=== PATIENT | female | born 1975 | race Caucasian/White ===

== ENCOUNTER 2016-10-09 12:51 | Emergency (ER) | payer MEDICAID ==
[~2016-10-09] VITALS: Ht 157.5 cm; Wt 99.5 kg
[~2016-10-09 12:51] MED LIST: FAMO-96 PO; HYDR-3498 PO; HYDR-906 PO; OMEP20CA9 PO; ONDA4TAB35 PO; PRED-253 PO
[2016-10-09 12:54] VITALS: Ht 157.5 cm; Wt 99.5 kg
[2016-10-09] MEDS ORDERED: morphine 4 MG/ML VIAL IV STA (13:34)
[2016-10-09] MEDS ORDERED: ONDANSETRON 4 MG INJ IV STA (13:34)
[2016-10-09] MEDS ORDERED: SOD CHLORIDE 0.9% 1,000 ML IV STA (13:34)
[2016-10-09] MEDS ORDERED: FAMOTIDINE 20 MG INJ IV STA (13:34)
[2016-10-09 14:14] LABS: ADD SCAN DIFF NO
[2016-10-09 14:17] LABS: ABNORMAL IP MESSAGE 1; BASOPHILS % 0.3 % (0.0-2.0); EOSINOPHILS # 0.2 10^3/ul (0.0-0.5); EOSINOPHILS % 5.2 % (0.0-7.0); HEMATOCRIT 37.9 % (37.0-47.0); HEMOGLOBIN 12.1 g/dl (12.0-16.0); LYMPHOCYTES # 0.4 10^3/ul (0.8-2.9); LYMPHOCYTES % 13.5 % (15.0-51.0); MEAN CORPUSCULAR HEMOGLOBIN 27.5 pg (29.0-33.0); MEAN CORPUSCULAR HGB CONC 31.9 g/dl (32.0-37.0); MEAN CORPUSCULAR VOLUME 86.1 fl (82.0-101.0); MEAN PLATELET VOLUME 11.3 fl (7.4-10.4); MONOCYTE # 0.2 10^3/ul (0.3-0.9); MONOCYTES % 7.1 % (0.0-11.0); NEUTROPHIL # 2.3 10^3/ul (1.6-7.5); NEUTROPHILS % 73.6 % (39.0-77.0); RED CELL DISTRIBUTION WIDTH 15.4 % (11.5-14.5); WHITE BLOOD COUNT 3.1 10^3/ul (4.8-10.8)
[2016-10-09 14:19] LABS: PLATELET COUNT 137 10^3/UL (140-415)
[2016-10-09 14:32] LABS: ALBUMIN 3.3 g/dl (3.3-4.9); ALBUMIN/GLOBULIN RATIO 0.89; BILIRUBIN,INDIRECT 0.4 mg/dl (0-1.1); BILIRUBIN,TOTAL 0.4 mg/dl (0.2-1.3); CALCIUM 8.5 mg/dl (8.4-10.2); CREATININE 0.55 mg/dl (0.44-1.00); POTASSIUM 3.4 mmol/L (3.5-5.1)
--- NOTE | 2016-10-09 14:38 | RADRPT ---
PROCEDURE: XR Chest. CLINICAL INDICATION: Shortness of breath. TECHNIQUE: Single frontal chest x-ray. COMPARISON: 11/27/2015 FINDINGS: The lungs are clear of acute infiltrates, edema, effusions, or masses. There are low lung volumes.. The cardiomediastinal silhouette is unremarkable. The osseous structures are intact. IMPRESSION: No acute cardiopulmonary disease. RPTAT: EE .Lefty Caldwell MD, MD Date Time Electronically viewed and signed by .Lefty Caldwell MD, on 10/09/2016 14:37 .L/
[2016-10-09 14:42] LABS: ADD UMIC YES; UR ASCORBIC ACID NEGATIVE (NEGATIVE); UR BILIRUBIN (Dip) NEGATIVE (NEGATIVE); UR BLOOD (Dip) 2+ mg/dL (NEGATIVE); UR CLARITY SLIGHTLY CLOUDY (CLEAR); UR COLOR YELLOW (YELLOW); UR GLUCOSE (Dip) NEGATIVE (NEGATIVE); UR KETONES (Dip) NEGATIVE (NEGATIVE); UR LEUKOCYTE ESTERASE (Dip) 2+ Leu/ul (NEGATIVE); UR NITRITE (Dip) NEGATIVE (NEGATIVE); UR RBC 5 /HPF (0-5); UR SPECIFIC GRAVITY (Dip) 1.013 (1.003-1.030); UR SQUAMOUS EPITHELIAL CELL FEW /HPF (FEW); UR TOTAL PROTEIN (Dip) 1+ mg/dl (NEGATIVE); UR UROBILINOGEN (Dip) NEGATIVE (NEGATIVE)
--- NOTE | 2016-10-09 14:59 | ERD ---
ER Documentation Chief Complaint Date/Time DATE: 10/09/16 TIME: 14:59 Chief Complaint VOMITING/DIARRHEA , BODY ACHE X 1 DAY HPI This is a 41-year-old female who presents to the emergency department today complaining of chest pain, vomiting, diarrhea, dizziness and body aches that started this morning states she has a history of lupus and gastritis. States she has had her gallbladder removed. She has not taken any medication for the pain besides her prednisone that she usually takes. ROS All systems reviewed and are negative except as per history of present illness. Medications Home Meds Active Scripts Acetaminophen* (Tylophen*) 500 Mg Capsule, 1 CAP PO Q6H Y for PAIN AND OR ELEVATED TEMP, #30 CAP Prov:ANGY TUCKER PA-C 10/09/16 Hydrocodone/Acetaminophen ([place] 5-325 Tablet) 1 Each Tablet, 1 TAB PO Q6H Y for PAIN, #12 TAB Prov:ANGY TUCKER PA-C 10/09/16 Cephalexin* (Keflex*) 500 Mg Capsule, 500 MG PO QID for 7 Days, CAP Prov:ANGY TUCKER PA-C 10/09/16 Famotidine* (Pepcid*) 20 Mg Tablet, 20 MG PO BID for 14 Days, TAB Prov:ANGY TUCKER PA-C 10/09/16 Dicyclomine Hcl* (Bentyl*) 10 Mg Capsule, 10 MG PO QID, #30 CAP Prov:ANGY TUCKER PA-C 10/09/16 Ondansetron Hcl* (Zofran*) 4 Mg Tablet, 4 MG PO Q6H for NAUSEA AND/OR VOMITING, #30 TAB Prov:ANGY TUCKER PA-C 10/09/16 Famotidine* (Pepcid*) 20 Mg Tablet, 20 MG PO BID for 4 Days, #30 TAB Prov:ASHLEY MCNEIL PA-C 11/27/15 Hydrocodone/Acetaminophen ([place] 5-325 Tablet) 1 Each Tablet, 1 TAB PO Q6H Y for PAIN, #7 TAB Prov:ASHLEY MCNEIL PA-C 11/27/15 Ondansetron Hcl* (Zofran* ODT) 4 mg -ODT Tab.disper, 4 MG PO Q8 Y for NAUSEA AND /OR VOMITING, #30 TAB Prov:DEMETRIUS SUBRAMANIAN JOSHUA RsoannaGagan HOUSEPERSON 02/01/15 Hydrocodone Bit-Acetaminophen* ([place]*) 5-325 Mg Tab, 1 TAB PO Q6 Y for PAIN, # 20 TAB Prov:DEMETRIUS SUBRAMANIANGagan HOUSEPERSON 02/01/15 Reported Medications Omeprazole* (Prilosec*) 20 Mg Capsule.dr, 20 MG PO DAILY 05/26/11 Prednisone (Prednisone) 5 Mg Tablet, 5 MG PO DAILY 05/26/10 Allergies Allergies: Coded Allergies: No Known Drug Allergy (Verified Allergy, Mild, 05/26/10) Unknown: Unable to obtain (Verified , 05/26/10) PMhx/Soc History of Surgery: Yes () Anesthesia Reaction: No Hx Neurological Disorder: No Hx Respiratory Disorders: No Hx Cardiac Disorders: Yes (HTN) Hx Psychiatric Problems: No Hx Miscellaneous Medical Probl: Yes (LUPUS, HIGH CHOLESTEROL, GASTRITIS) Hx Alcohol Use: No Hx Substance Use: No Hx Tobacco Use: No Physical Exam Vitals Vital Signs Date Time Temp Pulse Resp B/P Pulse Ox O2 Delivery O2 Flow Rate FiO2 10/09/16 12:54 98.7 98 18 108/53 98 Physical Exam Const: Obese, mild distress Head: Atraumatic Eyes: Normal Conjunctiva. PERRLA. EOM intact ENT: Normal External Ears, Nose and Mouth. Neck: Full range of motion..~ No meningismus. Resp: Clear to auscultation bilaterally. No absent breath sounds. No wheezing Cardio: Regular rate and rhythm, no murmurs Abd: Soft, epigastric tenderness and mild right upper quadrant tenderness non distended. Normal bowel sounds. No lower abdominal pain Skin: No petechiae or rashes Back: No midline or flank tenderness Ext: No cyanosis, or edema Neur: Awake and alert Psych: Normal Mood and Affect Result Diagram: 10/09/16 1330 10/09/16 1330 Results 24 hrs Laboratory Tests Test 10/09/16 13:30 White Blood Count 3.110^3/ul Red Blood Count 4.4010^6/ul Hemoglobin 12.1g/dl Hematocrit 37.9% Mean Corpuscular Volume 86.1fl Mean Corpuscular Hemoglobin 27.5pg Mean Corpuscular Hemoglobin Concent 31.9g/dl Red Cell Distribution Width 15.4% Platelet Count 67851^3/UL Mean Platelet Volume 11.3fl Neutrophils % 73.6% Lymphocytes % 13.5% Monocytes % 7.1% Eosinophils % 5.2% Basophils % 0.3% Nucleated Red Blood Cells % 0.0/100WBC Neutrophils # 2.310^3/ul Lymphocytes # 0.410^3/ul Monocytes # 0.210^3/ul Eosinophils # 0.210^3/ul Basophils # 0.010^3/ul Nucleated Red Blood Cells # 0.010^3/ul Urine Color YELLOW Urine Clarity SLIGHTLY CLOUDY Urine pH 6.0 Urine Specific [place] 1.013 Urine Ketones NEGATIVEmg/dL Urine Nitrite NEGATIVEmg/dL Urine Bilirubin NEGATIVEmg/dL Urine Urobilinogen NEGATIVEmg/dL Urine Leukocyte Esterase 2+David/ul Urine Microscopic RBC 5/HPF Urine Microscopic WBC 17/HPF Urine Squamous Epithelial Cells FEW/HPF Urine Hemoglobin 2+mg/dL Urine Glucose NEGATIVEmg/dL Urine Total Protein 1+mg/dl Sodium Level 142mmol/L Potassium Level 3.4mmol/L Chloride Level 107mmol/L Carbon Dioxide Level 19mmol/L Anion Gap 19 Blood Urea Nitrogen 13mg/dl Creatinine 0.55mg/dl Glucose Level 81mg/dl Calcium Level 8.5mg/dl Total Bilirubin 0.4mg/dl Direct Bilirubin 0.00mg/dl Indirect Bilirubin 0.4mg/dl Aspartate Amino Transf (AST/SGOT) 33IU/L Alanine Aminotransferase (ALT/SGPT) 69IU/L Alkaline Phosphatase 212IU/L Total Protein 7.0g/dl Albumin 3.3g/dl Globulin 3.70g/dl Albumin/Globulin Ratio 0.89 Lipase 110U/L Current Medications Medications (Trade) Dose Ordered Sig/Aaron Route PRN Reason Start Time Stop Time Status Last Admin Dose Admin Sodium Chloride (NS) 1,000 ml @ 1,000 mls/hr Q1H STAT IV 10/09/16 13:34 10/09/16 14:33 DC 10/09/16 14:30 Morphine Sulfate (morphine) 4 mg ONCE STAT IV 10/09/16 13:34 10/09/16 13:38 DC 10/09/16 14:53 Ondansetron HCl (Zofran Inj) 4 mg ONCE STAT IV 10/09/16 13:34 10/09/16 13:38 DC 10/09/16 14:53 Famotidine (Pepcid Iv) 20 mg ONCE STAT IV 10/09/16 13:34 10/09/16 13:38 DC 10/09/16 14:53 DIAGNOSTIC IMAGING REPORT Patient: KRIS VIGIL : 1975 Age: 41 Sex: F MR #: [id number] DOS: 10/09/16 0000 Ordering MD: ANGY TUCKER PA-C Location: [facility] Room/Bed: PROCEDURE: XR Chest. CLINICAL INDICATION: Shortness of breath. TECHNIQUE: Single frontal chest x-ray. COMPARISON: 11/27/2015 FINDINGS: The lungs are clear of acute infiltrates, edema, effusions, or masses. There are low lung volumes.. The cardiomediastinal silhouette is unremarkable. The osseous structures are intact. IMPRESSION: No acute cardiopulmonary disease. RPTAT: EE .Lefty Caldwell MD, MD Date Time Electronically viewed and signed by .Lefty Caldwell MD, on 10/09/2016 14:37 .L/ CC: ANGY TUCKER PA-C Procedures/[facility] This is a 41-year-old female who presents to the emergency department today with multiple complaints. Patient has a history of lupus and gastritis. Given patient's medical history and complaints and physical exam I did obtain laboratory workup as well as a chest x-ray and EKG Laboratory workup shows a mildly decreased white blood cell count. She is not anemic. Her platelets are decreased. Potassium is very mildly decreased otherwise electrolytes are within normal limits glucose is within normal limits. Liver enzymes are within normal limits Urine shows 2+ leukocyte esterase and negative nitrites and elevated white blood cells. EKG read and interpreted by Dr. Barbosa rate [address] elevation. No QT prolongation. Normal sinus rhythm. Low suspicion for acute NV, PE, pericarditis Chest x-ray shows no acute cardiopulmonary disease. Low suspicion for pneumonia , PE, abscess, pleural effusion, pneumothorax. Patient is afebrile. She is not tachycardic. Her oxygen saturations 98%. Patient was given morphine, Zofran and IV fluids here in the emergency department. Symptoms improved Patient symptoms at this time is consistent with abdominal pain, vomiting and diarrhea likely viral versus gastritis however may be related to urinary tract infection. Patient will be given a prescription for [place], Tylenol Keflex, Zofran, Bentyl, Pepcid At this time the patient is stable for discharge and outpatient management. Patient should follow up with their PCP in the next 1-2 days. They may return to the emergency department sooner for any persistent or worsening of symptoms. Patient understood and agreed with the plan. Discussed the patient with Dr. Barbosa and he is agreed with plan Departure Diagnosis: Primary Impression: Multiple complaints Condition: ANGY Cleveland PA-C Oct 09, 2016 14:59
[2016-10-09] MEDS ORDERED: DICY10CA60 PO (15:20)
[2016-10-09] MEDS ORDERED: ONDA4TAB8 PO (15:20)
[2016-10-09] MEDS ORDERED: CEPH-443 PO (15:21)
[2016-10-09] MEDS ORDERED: FAMO-96 PO (15:21)
[2016-10-09] MEDS ORDERED: HYDR-906 PO (15:22)
[2016-10-09] MEDS ORDERED: ACET500C5 PO (15:23)
== END 2016-10-09 16:43 | disposition home or self-care (01) ==
LOC: FTE 12:51
DX: R11.10 Vomiting, unspecified (principal); I10 Essential (primary) hypertension; R19.7 Diarrhea, unspecified; R10.13 Epigastric pain; R10.11 Right upper quadrant pain; R42 Dizziness and giddiness; R07.9 Chest pain, unspecified
CPT/HCPCS: 36415; 71010; 80053; 81001; 83690; 85025; 93005; 96361; 96374; 96375; J2270; J2405; J7030; Z7502; Z7610

== ENCOUNTER 2017-02-17 19:33 | Emergency (ER) | payer MEDICAID ==
[~2017-02-17] VITALS: Ht 154.9 cm; Wt 103.1 kg
[~2017-02-17 19:33] MED LIST changes: +ACET500C5 PO; +CEPH-443 PO; +DICY10CA60 PO; +ONDA4TAB8 PO
[2017-02-17 19:54] VITALS: Ht 154.9 cm; Wt 103.1 kg
[2017-02-17] MEDS ORDERED: GUAI473L22 PO (21:03)
[2017-02-17] MEDS ORDERED: DICY10CA60 PO (21:03)
[2017-02-17] MEDS ORDERED: CETI10CA PO (21:03)
[2017-02-17] MEDS ORDERED: ALBU8.5H3 INH (21:03)
[2017-02-17] MEDS ORDERED: PRED5TAB PO (21:03)
[2017-02-17] MEDS ORDERED: IBUP-1542 PO (21:03)
[2017-02-17] MEDS ORDERED: TRAM50TA2 PO (21:03)
[2017-02-17] MEDS ORDERED: ONDA4TAB14 PO (21:03)
--- NOTE | 2017-02-17 21:39 | ERD ---
ER Documentation Chief Complaint Chief Complaint body ache, headache, rash on L arm, pain on stomach x 1 week HPI 41-year-old female presents to emergency department for multiple complaints. Patient is complaining of generalized body aches, headache, epigastric pain and vomiting and diarrhea cough runny nose nasal congestion sore throat bilateral ear pain that started 1 week ago. Patient's son is sick with the same symptoms. Patient describes pain in affected areas as throbbing pain, 6/10 scale, accompanying the other symptoms. Patient does not have any fever or chills. Patient has not any blood in stool or black stool. Patient does not have any shortness of breath or wheezing. Patient has history of lupus, has chronic pain, her pain makes the symptoms worse. Patient denies any other symptoms. ROS All systems reviewed and are negative except as per history of present illness. Medications Home Meds Active Scripts Prednisone* (Prednisone*) 5 Mg Tab, 5 MG PO DAILY, #5 TAB Prov:DEMETRIUS SUBRAMANIAN NP 02/17/17 Ondansetron (Ondansetron Odt) 4 Mg Tab.rapdis, 4 MG PO Q6H Y for NAUSEA AND/OR VOMITING, #20 TAB Prov:DEMETRIUS SUBRAMANIAN NP 02/17/17 Dicyclomine Hcl* (Bentyl*) 10 Mg Capsule, 10 MG PO QID, #20 CAP Prov:DEMETRIUS SUBRAMANIAN NP 02/17/17 Albuterol Sulfate* (Proair HFA*) 8.5 Gm Hfa.aer.ad, 2 PUFF INH Q4H Y for WHEEZING AND SOB, #1 INHALER Prov:DEMETRIUS SUBRAMANIAN NP 02/17/17 Cetirizine Hcl* (Zyrtec*) 10 Mg Capsule, 10 MG PO DAILY, #30 TAB.CHEW Prov:DEMETRIUS SUBRAMANIAN NP 02/17/17 Guaifenesin-Codeine Phosphate* (Guaifenesin* AC Cough Syrup) 473 Ml Liquid, 10 ML PO Q4H Y for COUGH, #120 ML Prov:DEMETRIUS SUBRAMANIAN NP 02/17/17 Tramadol HCl (Tramadol HCl) 50 Mg Tablet, 50 MG PO Q6 for SEVERE PAIN LEVEL 7-10 , #20 TAB Prov:DEMETRIUS SUBRAMANIAN NP 02/17/17 Ibuprofen* (Motrin*) 600 Mg Tab, 600 MG PO Q6H Y for PAIN AND OR ELEVATED TEMP, #30 TAB Prov:DEMETRIUS SUBRAMANIAN NP 02/17/17 Acetaminophen* (Tylophen*) 500 Mg Capsule, 1 CAP PO Q6H Y for PAIN AND OR ELEVATED TEMP, #30 CAP Prov:ANGY TUCKER-C 10/09/16 Hydrocodone/Acetaminophen ([place] 5-325 Tablet) 1 Each Tablet, 1 TAB PO Q6H Y for PAIN, #12 TAB Prov:ANGY TUCKER-C 10/09/16 Cephalexin* (Keflex*) 500 Mg Capsule, 500 MG PO QID for 7 Days, CAP Prov:ANGY TUCKER-C 10/09/16 Famotidine* (Pepcid*) 20 Mg Tablet, 20 MG PO BID for 14 Days, TAB Prov:ANGY TUCKER-C 10/09/16 Dicyclomine Hcl* (Bentyl*) 10 Mg Capsule, 10 MG PO QID, #30 CAP Prov:ANGY TUCKER-C 10/09/16 Ondansetron Hcl* (Zofran*) 4 Mg Tablet, 4 MG PO Q6H for NAUSEA AND/OR VOMITING, #30 TAB Prov:ANGY TUCKER-C 10/09/16 Famotidine* (Pepcid*) 20 Mg Tablet, 20 MG PO BID for 4 Days, #30 TAB Prov:ASHLEY MCNEIL PA-C 11/27/15 Hydrocodone/Acetaminophen ([place] 5-325 Tablet) 1 Each Tablet, 1 TAB PO Q6H Y for PAIN, #7 TAB Prov:ASHLEY MCNEIL PA-C 11/27/15 Ondansetron Hcl* (Zofran* ODT) 4 mg -ODT Tab.disper, 4 MG PO Q8 Y for NAUSEA AND /OR VOMITING, #30 TAB Prov:DEMETRIUS SUBRAMANIAN NP 02/01/15 Hydrocodone Bit-Acetaminophen* ([place]*) 5-325 Mg Tab, 1 TAB PO Q6 Y for PAIN, # 20 TAB Prov:DEMETRIUS SUBRAMANIAN ENGINEERING AIDE 02/01/15 Reported Medications Omeprazole* (Prilosec*) 20 Mg Capsule.dr, 20 MG PO DAILY 05/26/11 Prednisone (Prednisone) 5 Mg Tablet, 5 MG PO DAILY 05/26/10 Allergies Allergies: Coded Allergies: No Known Drug Allergy (Verified Allergy, Mild, 05/26/10) Unknown: Unable to obtain (Verified , 05/26/10) PMhx/Soc History of Surgery: Yes () Anesthesia Reaction: No Hx Neurological Disorder: No Hx Respiratory Disorders: No Hx Cardiac Disorders: Yes (HTN) Hx Psychiatric Problems: No Hx Miscellaneous Medical Probl: Yes (LUPUS, HIGH CHOLESTEROL, GASTRITIS) Hx Alcohol Use: No Hx Substance Use: No Hx Tobacco Use: No Smoking Status: Never smoker FmHx Family History: No coronary disease, No diabetes, No other Physical Exam Vitals Vital Signs Date Time Temp Pulse Resp B/P Pulse Ox O2 Delivery O2 Flow Rate FiO2 02/17/17 19:54 98.2 74 20 110/56 99 Physical Exam Physical exam GENERAL: The patient is well developed and appropriate for usual state of health, in no apparent distress. HEENT: Atraumatic. Ears: Normal tympanic membrane, no erythema or bulging. No ear canal swelling. No ear discharge. Nose: Edematous nasal turbinates with green nasal discharge. Throat: oropharynx erythematous with postnasal drip. No tonsillar swelling or tonsillar exudates. No lymphadenopathy. CHEST: Clear to auscultation bilaterally. There are no rales, wheezes or rhonchi. HEART: Regular rate and rhythm. No murmurs, clicks, rubs or gallops. No S3 or S4. ABDOMEN: Soft, nontender and nondistended. Hyperactive bowel sounds. No rebound or guarding. No gross peritonitis. No gross organomegaly or masses. No Arias sign or McBurney point tenderness. BACK: No midline or flank tenderness. EXTREMITIES: Equal pulses bilaterally. There is no peripheral clubbing, cyanosis or edema. No focal swelling or erythema. Full range of motion. Grossly neurovascularly intact. NEURO: Alert and oriented. Cranial nerves 2-12 intact. Motor strength in all 4 extremities with 5/5 strength. Sensation grossly intact. Normal speech and gait. SKIN: There is no apparent rash or petechia. The skin is warm and dry. HEMATOLOGIC AND LYMPHATIC: There is no evidence of excessive bruising or lymphedema. No gross cervical, axillary, or inguinal lymphadenopathy. Procedures/MDM Medical decision making: Patient symptoms was likely is consistent with viral syndrome. No symptoms of any abdominal emergencies, abdominal exam is normal. Patient has hyperactive bowel sounds consistent with viral diarrhea. No active vomiting at this time. No symptoms of any dehydration. Lungs are clear, no symptoms of pneumonia, oxygenation is normal, no wheezing, symptoms of any respiratory distress. No symptoms of sepsis at this time, patient appears once hemodynamically stable. Radiology exams or laboratory testing not indicated at this time. Patient was advised to follow-up with primary care doctor 1-2 days for reevaluation of symptoms. Patient was advised to return to emergency department for any worsening symptoms. She was given for guaifenesin with codeine, Zyrtec, ibuprofen, tramadol, prednisone, albuterol, was advised to follow-up with primary care doctor 1-2 days for reevaluation of symptoms. She was advised to return to emergency department for any worsening symptoms. Disposition: Home. Stable Departure Diagnosis: Primary Impression: Viral syndrome Condition: Stable Patient Instructions: Viral Syndrome (Adult) DEMETRIUS SUBRAMANIAN NP Feb 17, 2017 21:39
== END 2017-02-17 21:21 | disposition home or self-care (01) ==
LOC: FTE 19:33
DX: B34.9 Viral infection, unspecified (principal); I10 Essential (primary) hypertension
CPT/HCPCS: 99284

== ENCOUNTER 2018-07-20 16:53 | Emergency (ER) | payer MEDICAID ==
[~2018-07-20] VITALS: Ht 157.5 cm; Wt 114.8 kg
[~2018-07-20 16:53] MED LIST changes: +ALBU8.5H8 INH; +CETI10CA PO; +DICY10CA40 PO; -DICY10CA60 PO; +GUAI473L22 PO; +HYDR-4011 PO; -HYDR-906 PO; +IBUP-1542 PO; +ONDA4TAB14 PO; +PRED5TAB PO; +TRAM50TA2 PO
[2018-07-20 17:14] VITALS: BP 158/67; PULSE 76; RESP 18; Ht 157.5 cm; Wt 114.8 kg
[2018-07-20] MEDS ORDERED: D-ME118S24 PO (18:08)
[2018-07-20] MEDS ORDERED: ALBU18HF INHALATION (18:08)
--- NOTE | 2018-07-20 18:16 | ERD ---
ER Documentation Chief Complaint Chief Complaint cough x1mth, rt ear pain and fever HPI 43-year-old female past medical history of lupus presents for cough x1 month. She also has right ear pain and fever intermittently. She states that the cough is noted to be dry. She did have a cold and flulike symptoms about month ago. She states that the cough persists. She tried DayQuil without relief. Otherwise denies chest pain or shortness of breath. Denies pain, nausea, vomiting. No other treatments tried. No other modifying factors noted. ROS All systems reviewed and are negative except as per history of present illness. Medications Home Meds Active Scripts Albuterol Sulfate* (Ventolin HFA*) 18 Gm Hfa.aer.ad, 2 PUFF INHALATION Q4H PRN for cough/shortness of breath, #1 INHALER Prov:MONICA PETTIT DO 07/20/18 D-Methorphan Hb/P-Epd HCl/Bpm (Oxvfebqxpu-Uadipiolovs-Db Syr) 118 Ml Syrup, 5 ML PO Q4H PRN for COUGH for 10 Days, #1 BOTTLE Prov:MONICA PETTIT DO 07/20/18 Prednisone* (Prednisone*) 5 Mg Tab, 5 MG PO DAILY, #5 TAB Prov:DEMETRIUS SUBRAMANIAN NP 02/17/17 Ondansetron (Ondansetron Odt) 4 Mg Tab.rapdis, 4 MG PO Q6H PRN for NAUSEA AND/OR VOMITING, #20 TAB Prov:DEMETRIUS SUBRAMANIAN NP 02/17/17 Dicyclomine HCl (Dicyclomine HCl) 10 Mg Capsule, 10 MG PO QID, #20 CAP Prov:DEMETRIUS SUBRAMANIAN NP 02/17/17 Albuterol Sulfate* (Proair HFA*) 8.5 Gm Hfa.aer.ad, 2 PUFF INH Q4H PRN for WHEEZING AND SOB, #1 INHALER Prov:DEMETRIUS SUBRAMANIAN NP 02/17/17 Cetirizine Hcl* (Zyrtec*) 10 Mg Capsule, 10 MG PO DAILY, #30 TAB.CHEW Prov:DEMETRIUS SUBRAMANIAN NP 02/17/17 Guaifenesin-Codeine Phosphate* (Guaifenesin* AC Cough Syrup) 473 Ml Liquid, 10 ML PO Q4H PRN for COUGH, #120 ML Prov:DEMETRIUS SUBRAMANIAN NP 02/17/17 Tramadol HCl (Tramadol HCl) 50 Mg Tablet, 50 MG PO Q6 for SEVERE PAIN LEVEL 7- 10, #20 TAB Prov:DEMETRIUS SUBRAMANIAN NP 02/17/17 Ibuprofen* (Motrin*) 600 Mg Tab, 600 MG PO Q6H PRN for PAIN AND OR ELEVATED TEMP, #30 TAB Prov:DEMETRIUS SUBRAMANIAN NP 02/17/17 Acetaminophen* (Tylophen*) 500 Mg Capsule, 1 CAP PO Q6H PRN for PAIN AND OR ELEVATED TEMP, #30 CAP Prov:ANGY TUCKER PA-C 10/09/16 Hydrocodone/Acetaminophen ([place] 5-325 Tablet) 1 Each Tablet, 1 TAB PO Q6H PRN for PAIN, #12 TAB Prov:ANGY TUCKER PA-C 10/09/16 Cephalexin* (Keflex*) 500 Mg Capsule, 500 MG PO QID for 7 Days, CAP Prov:ANGY TUCKER PA-C 10/09/16 Famotidine* (Pepcid*) 20 Mg Tablet, 20 MG PO BID for 14 Days, TAB Prov:ANGY TUCKER PA-C 10/09/16 Dicyclomine HCl (Dicyclomine HCl) 10 Mg Capsule, 10 MG PO QID, #30 CAP Prov:ANGY TUCKER PA-C 10/09/16 Ondansetron Hcl* (Zofran*) 4 Mg Tablet, 4 MG PO Q6H for NAUSEA AND/OR VOMITING, #30 TAB Prov:ANGY TUCKER PA-C 10/09/16 Famotidine* (Pepcid*) 20 Mg Tablet, 20 MG PO BID for 4 Days, #30 TAB Prov:ASHLEY MCNEIL PA-C 11/27/15 Hydrocodone/Acetaminophen ([place] 5-325 Tablet) 1 Each Tablet, 1 TAB PO Q6H PRN for PAIN, #7 TAB Prov:ASHLEY MCNEIL PA-C 11/27/15 Ondansetron Hcl* (Zofran* ODT) 4 mg -ODT Tab.disper, 4 MG PO Q8 PRN for NAUSEA AND/OR VOMITING, #30 TAB Prov:DEMETRIUS SUBRAMANIAN NP 02/01/15 Hydrocodone Bit-Acetaminophen* ([place]*) 5-325 Mg Tab, 1 TAB PO Q6 PRN for PAIN, #20 TAB Prov:DEMETRIUS SUBRAMANIAN NP 02/01/15 Reported Medications Omeprazole* (Prilosec*) 20 Mg Capsule.dr, 20 MG PO DAILY 05/26/11 Prednisone (Prednisone) 5 Mg Tablet, 5 MG PO DAILY 05/26/10 Allergies Allergies: Coded Allergies: No Known Drug Allergy (Verified Allergy, Mild, 05/26/10) Unknown: Unable to obtain (Verified , 05/26/10) PMhx/Soc History of Surgery: Yes () Anesthesia Reaction: No Hx Neurological Disorder: No Hx Respiratory Disorders: No Hx Cardiac Disorders: Yes (HTN) Hx Psychiatric Problems: No Hx Miscellaneous Medical Probl: Yes (LUPUS, HIGH CHOLESTEROL, GASTRITIS) Hx Alcohol Use: No Hx Substance Use: No Hx Tobacco Use: No Physical Exam Vitals Vital Signs Date Temp Pulse Resp B/P (MAP) Pulse Ox O2 O2 Flow FiO2 Time Delivery Rate 07/20/18 98.2 76 18 158/67 100 17:14 (97) Physical Exam Const: No acute distress Head: Atraumatic Eyes: Normal Conjunctiva ENT: Normal External Ears, bilateral tympanic membrane intact without erythema or bulging noted, nose and Mouth examination normal, no tonsillar swelling or exudate noted Neck: Full range of motion. No meningismus. Resp: Clear to auscultation bilaterally, no wheezing, rales, rhonchi Cardio: Regular rate and rhythm, no murmurs Skin: No petechiae or rashes Ext: No cyanosis, or edema Neur: Awake and alert Psych: Normal Mood and Affect Procedures/MDM Medical Decision Making: Differential diagnosis includes but not limited to upper respiratory infection, pneumonia, sepsis, meningitis, influenza. Patient appeared well on physical examination, nontoxic appearing. Lungs were clear to auscultation bilaterally. There is low suspicion for pneumonia, sepsis, meningitis. Patient likely had a upper respiratory infection about a month ago and has posttussive cough. Patient given prescription for supportive medication(s). Patient advised to follow up with PCP in 1-2 days. Patient advised to return to ED for new or worsening symptoms. Patient stable on discharge from the ED. Disclaimer: Inadvertent spelling and grammatical errors are likely due to EHR/dictation software use and do not reflect on the overall quality of patient care. Also, please note that the electronic time recorded on this note does not necessarily reflect the actual time of the patient encounter. Departure Diagnosis: Primary Impression: Cough Condition: Fair Patient Instructions: Cough, Chronic, Uncertain Cause, (Adult) Referrals: [facility] YOU HAVE RECEIVED A MEDICAL SCREENING EXAM AND THE RESULTS INDICATE THAT YOU DO NOT HAVE A CONDITION THAT REQUIRES URGENT TREATMENT IN THE EMERGENCY DEPARTMENT. FURTHER EVALUATION AND TREATMENT OF YOUR CONDITION CAN WAIT UNTIL YOU ARE SEEN IN YOUR DOCTORS OFFICE WITHIN THE NEXT 1-2 DAYS. IT IS YOUR RESPONSIBILITY TO MAKE AN APPOINTMENT FOR FOLOW-UP CARE. IF YOU HAVE A PRIMARY DOCTOR --you should call your primary doctor and schedule an appointment IF YOU DO NOT HAVE A PRIMARY DOCTOR YOU CAN CALL OUR PHYSICIAN REFERRAL HOTLINE AT IF YOU CAN NOT AFFORD TO SEE A PHYSICIAN YOU CAN CHOSE FROM THE FOLLOWING [facility] [address] [facility]. [facility] [address] [facility]. [facility] [address] [facility] [facility] [address] [facility]. [facility] [address] [facility]. [facility]. [address] [place] Additional Instructions: Llame al doctor MAANA y akhil sharon DANY PARA DENTRO DE 1-2 LARA.Dgale a la secretaria que nosotros le instruimos hacer esta dany.Avise o llame si mckeon condicin se empeora antes de la dany. Regresa aqui si peor o no mejor. MONICA PETTIT DO Jul 20, 2018 18:16
== END 2018-07-20 18:12 | disposition home or self-care (01) ==
LOC: E/R 16:53
DX: R05 Cough (principal); I10 Essential (primary) hypertension
CPT/HCPCS: 99283